=== PATIENT | female | born 1955 | race African-American/Black ===

== ENCOUNTER → 2021-07-30 | Day surgery (SDC) | payer OTHER ==
--- NOTE | 2021-07-29 16:12 | HP ---
ADMIT DATE: 07/30/2021 HISTORY OF PRESENT ILLNESS: The patient is sent to me because of masses of the back. They do hurt her and causes difficulty at times, especially when she sits. PAST MEDICAL HISTORY: Shows normal childhood diseases. She does take insulin for diabetes and takes medicine for hypertension. ALLERGIES: SHE HAS NO SIGNIFICANT ALLERGIES THOUGH SHE DOES HAVE SOME SIDE EFFECTS FROM THE MEDICINE. WITH METFORMIN SHE HAS DIARRHEA, SO SHE DOES NOT TAKE THAT, BUT NO ACTUAL ALLERGIES. PAST SURGICAL HISTORY: The patient has had one surgery, hysterectomy years ago and has also had a "tummy tuck." FAMILY HISTORY: Noncontributory. SOCIAL HISTORY: Shows that she does not smoke, drink or use illicit drugs. REVIEW OF SYSTEMS: She is doing well and only has pain of her back with these masses, especially when she sits. PHYSICAL EXAMINATION: GENERAL: Shows an alert female in no acute distress. HEAD, EYES, EARS, NOSE AND THROAT: Grossly clear and normal. CHEST: Clear bilaterally to auscultation. HEART: Had a rate of 72 beats per minute and it was regular. No murmurs, heaves, friction rubs or thrills. ABDOMEN: Grossly normal. EXTREMITIES: Examination of the extremities grossly normal. BACK: Mid back between the shoulder blades have a mass, which was about 4 cm in size that I can measure. A smaller one in the midline down to the lumbar area just to the left of the midline is about 2 cm in size. Neither were infected. There were not particularly tender at this point, but when she leans against something they do hurt. IMPRESSION: 1. Hypertension. 2. Two tumors of the back, these are not in the skin. 3. Diabetes. SALENA/WILDER DR: Carisa TID: [id number] [facility]
[~2021-07-30] VITALS: Ht 167.6 cm; Wt 100.0 kg
[~2021-07-30] MED LIST: AMIT10TA PO; ATEN100T PO; HYDR12.575 PO; INSU100V8 SQ; LIDOCAINE 1%/EPI 1:100,000 20 ML VIAL. INJ ONE
[2021-07-30 10:32] VITALS: BP 143/98
--- NOTE | 2021-07-30 13:31 | DISCH ---
DISCHARGE INSTRUCTIONS Condition on Discharge Condition on Discharge: Stable Activity After Discharge Activity Instructions for Disc: Avoid exertion Diet after Discharge Additional Diet Restrictions: resume pre op diet Wound Incision Care Other wound/incision instructi: leve dressing on Follow-Up Follow up with: Dr butt in 2 weeks MICHEAL BUTT MD Jul 30, 2021 13:31
--- NOTE | 2021-07-30 17:25 | OP ---
DATE OF SURGERY: 07/30/2021 SURGEON: Dhruv Couch MD PREOPERATIVE DIAGNOSES: Large upper midline back mass and lower smaller midline back mass. The lesion at the upper back was 5 cm, the lower back was 2.5 cm. The margins on the upper back was 9 cm and the lower back incision with margins was 4 cm. POSTOPERATIVE DIAGNOSIS: Mass of the upper and lower back. ANESTHESIA: General. PROCEDURE: Excision of midline mass, upper back, large; smaller mass, lower back. DESCRIPTION OF PROCEDURE: Under local anesthesia, using 1% lidocaine. After the area had been properly prepped and draped, it was anesthetized. Mass in the upper back had been fairly large. We made an incision longitudinally over it as encompassing some of the skin. The mass went about 2-3 cm deep and more, and slowly went through the skin with a 15 blade and once we got to the subcutaneous, we used Metzenbaum scissors and also De Los Santos scissors to excise the mass from the surrounding structures. We slowly did this by making certain not to injure the mass. Entered it anyway, we slowly excised it. The resultant defect was fairly large as we anticipated. Pressure was used to control the bleeding and because of the upper back, we used 2-0 interrupted Vicryl to approximate the subcu and deep dermis. We used about 4 or 5 of these sutures. We then closed the skin using interrupted 3-0 nylon. Sterile Tegaderm dressing was applied and the procedure was terminated. The lower incision was now inspected and was treated exactly in the same way as the upper one only a small. Because it had one mass, which was about 3 cm and had another one next to it, we made a transverse incision here. We slowly did the same thing for this lesion going around it with a 15 blade, incising it, and then using Metzenbaum scissors to excise it from the underlying subcutaneous and deeper tissues. Neither mass went into the fascia. The resultant defect after we slowly removed this mass was inspected and we closed it in a transverse fashion using #3-0 Vicryl for the deep dermis and subcuticular interrupted sutures and then 4-0 and 3-0 nylon to close the skin in interrupted fashion. Tegaderm dressing was applied here also and the procedure was terminated. Blood loss was about 4 mL. FLUIDS GIVEN: None. DRAINS: No drains were used. CONDITION: The condition of the patient satisfactory as she has returned to the holding area. MICKIE DR: Carisa TID: [id number] [facility]TDWing
--- NOTE | 2021-07-31 17:11 | PATHOLOGY ---
[facility] Accession Number: [id number] . 01 Material submitted: . PART A: back - UPPER BACK MASS. Modifiers: upper PART B: back - MID BACK MASS. Modifiers: mid . 01 Clinical history: . BACK MASS X2 . 02 Diagnosis: A. Skin and subcutaneous tissue, upper back mass: - Epidermal inclusion cyst. . B. Skin, mid back mass: - Epidermal inclusion cyst. (JPM:pit; 07/31/2021) [facility] 07/31/2021 1324 Local . 02 Comment: There is no evidence of malignancy. (JPM:pit; 07/31/2021) . 02 Electronically signed: . Jerrell Shultz MD, Pathologist NPI- [id number] . 01 Gross description: . A. The specimen is received in formalin, labeled "Malena Jose, upper back mass". Received is an ellipse of light laura, grossly unremarkable skin with attached underlying soft tissue measuring 4.8 x 2.2 x 2.5 cm in greatest dimensions. Sectioning reveals a unilocular cystic structure measuring 2.5 cm filled with reid-brown, waxy to friable material. The specimen is submitted representatively in cassette A1. . B. The specimen is received in formalin, labeled "Malena Jose, mid back mass". Received is an ellipse of light laura, grossly unremarkable skin with attached underlying soft tissue measuring 3.0 x 1.0 x 1.2 cm in greatest dimensions. The epidermal surface displays a linear defect measuring 0.3 cm, which probes to a depth of 1.2 cm. Sectioning reveals a unilocular cystic structure measuring 0.8 cm filled with light brown waxy material. The specimen is submitted representatively in cassette B1. (CAA; 07/30/2021) QAC/QAC 07/30/2021 1714 Local . 02 Pathologist provided ICD-10: L72.0 . 02 CPT . 111846, [id number] Specimen Comment: A courtesy copy of this report has been sent to [phone], [phone] Specimen Comment: [id number] Specimen Comment: Report sent to / DR RAINEY Specimen Comment: A duplicate report has been generated due to demographic updates. Performed at: 01 [facility] [address] [id number] MD Tyron Yo MD Phone: [phone] Performed at: 02 [facility] [address] [place], [place] [id number] MD Jerrell Shultz MD Phone: [phone]
== END ==
LOC: SURG 10:17
PROVIDERS: ATTEND Specialist
DX: R22.2 Localized swelling, mass and lump, trunk (principal); L72.0 Epidermal cyst; I10 Essential (primary) hypertension; E11.9 Type 2 diabetes mellitus without complications; Z90.710 Acquired absence of both cervix and uterus; Z98.890 Other specified postprocedural states
CPT/HCPCS: 11403; 11406; 12032; 88304; J3490